=== PATIENT | male | born 1960 | race Caucasian/White ===

== ENCOUNTER 2021-05-08 15:11 | Emergency (ER) | payer SELFPAY ==
[2021-05-09] MEDS ORDERED: ZOFRAN ODT4 MG PO (20:44)
== END 2021-05-08 16:01 | disposition left against medical advice (07) ==
LOC: COL.ER 15:11
DX: R69 Illness, unspecified (principal)

== ENCOUNTER 2021-05-09 18:13 | Emergency (ER) | payer SELFPAY ==
[~2021-05-09] VITALS: Ht 172.7 cm; Wt 100.0 kg
[2021-05-09 19:27] LABS: BASO % 0.2 % (0.0-2.0); EOS % 0.2 % (0-4.0); GRAN # 4.2 (1.4-6.5); GRAN % 80.5 % (42.2-75.2); HEMATOCRIT 45.4 % (42.0-52.0); HEMOGLOBIN 15.3 g/dl (13.5-18.0); LYMPH # 0.6 (1.2-3.4); LYMPH % 11.2 % (20.0-51.0); MEAN CELL VOLUME 85 fl (80.0-100.0); MEAN CORPUSCULAR HEMOGLOBIN 29 pg (27.0-31.0); MEAN CORPUSCULAR HGB CONC 34 g/dl (33.0-37.0); MEAN PLATELET VOLUME 10.2 fl (7.4-10.4); MONO # 0.4 (0.1-0.6); MONO % 7.7 % (1.7-9.3); PLATELET COUNT 185 K/mm3 (130-400); RED BLOOD COUNT 5.37 M/mm3 (4.20-5.60); REDCELL DISTRIBUTION WIDTH-CV 12.7 % (11.5-14.5)
[2021-05-09 19:37] LABS: ALANINE AMINOTRANSFERASE 23 U/L (4-49); ALBUMIN 4.2 gm/dL (3.5-5.0); ALKALINE PHOSPHATASE 132 U/L (50-136); ANION GAP 9 mmol/L (7-16); AST,SGOT 38 U/L (15-37); BLOOD UREA NITROGEN 33 mg/dL (9-20); CALCIUM 9.2 mg/dL (8.4-10.2); CARBON DIOXIDE 20 mmol/L (22-30); CHLORIDE 110 mmol/L (98-107); CREATININE, serum 1.05 (0.66-1.25); GLUCOSE 114 mg/dL (74-106); POTASSIUM 3.9 mmol/L (3.4-5.0); SODIUM 140 mmol/L (137-145); TOTAL PROTEIN 7.8 gm/dL (6.4-8.2)
[2021-05-09 19:55] LABS: TROPONIN-I < 0.012 ng/mL (0.000-0.035)
[2021-05-09] MEDS ORDERED: ZOFRAN ODT4 MG PO (20:44)
[2021-05-09 21:00] VITALS: BP 134/80; PULSE 68; TEMP 98
== END 2021-05-09 21:04 | disposition home or self-care (01) ==
LOC: COL.ER 18:13
PROVIDERS: Emergency Medicine
DX: U07.1 COVID-19 (principal)
CPT/HCPCS: J2405; J7030